=== PATIENT | female | born 1955 | race Caucasian/White ===

== ENCOUNTER 2021-08-11 13:37 | Outpatient (REF) | payer MEDICARE, SELFPAY ==
--- NOTE | ~2021-08-11 | MM_ITS ---
EXAMINATION: MM SCREENING DIGITAL BREAST TOMOSYNTHESIS, BILATERAL CLINICAL INFORMATION: Screening. Asymptomatic. The lifetime risk of breast cancer based on the Tyrer-Cuzick Model is 10%. COMPARISON: Mammography: 09/05/2014, 02/21/2013 TECHNIQUE: Digital breast tomosynthesis is performed in both the craniocaudal and mediolateral oblique views along with computer-aided detection (CAD). Synthesized 2D images are generated from the tomosynthesis. FINDINGS: There are scattered areas of fibroglandular density (ACR BI-RADS breast composition Category b). There are no significant masses, abnormal calcifications, or other abnormalities. Parenchymal pattern is similar to prior studies. There is no developing density or architectural abnormality. The axilla and skin contours are unremarkable. No significant changes. MM/MM tomosynthesis screening BI IMPRESSION: No mammographic evidence of malignancy. ASSESSMENT: BI-RADS 1: Negative RECOMMENDATION: Routine annual mammography screening. This patient's information was entered into a reminder system with a target due date for their next mammogram.
== END 2021-08-11 13:38 | disposition home or self-care (01) ==
LOC: HO.MAMMO 13:37
PROVIDERS: PCP Internal Medicine; Visit Provider Internal Medicine
DX: Z12.31 Encounter for screening mammogram for malignant neoplasm of breast (principal)
CPT/HCPCS: 77063; 77067

== ENCOUNTER 2022-06-19 06:16 | Outpatient (REF) | payer MEDICARE, SELFPAY ==
[2022-06-19 11:35] LABS: MANUAL DIFF FLAG NO
[2022-06-19 11:44] LABS: Basophils Percent Auto 0.9 % (0-2); Eosinophils Absolute Auto 0.1 X10*3/uL (0.0-0.4); Eosinophils Percent Auto 1.7 % (0-4); Hematocrit 39.4 % (37.0-47.0); Imm Gran Abs Auto 0.01 X10*3/uL (0.00-0.03); Imm Gran Pct Auto 0.2 % (0.0-0.4); Lymphocytes Absolute Auto 2.1 X10*3/uL (1.2-4.9); Lymphocytes Percent Auto 44.8 % (20-40); Mean Corpuscular Hemoglobin 31.7 pg (27.0-33.0); Mean Corpuscular Volume 96.1 fL (80.0-98.0); Mean Platelet Volume 10.7 fL (9.4-12.3); Monocytes Absolute Auto 0.3 X10*3/uL (0.1-1.2); Monocytes Percent Auto 6.5 % (2-11); Neutrophils Absolute Auto 2.1 x10*3/uL (2.0-8.3); Neutrophils Percent Auto 45.9 % (45-73); Platelet Count 243 X10*3/uL (160-400); Red Cell Distribution Width 13.4 % (11.0-16.0); White Blood Count 4.6 X10*3/uL (4.8-10.8)
[2022-06-19 12:59] LABS: Alanine Aminotransferase 22 U/L (0-31); Alkaline Phosphatase 73 U/L (39-117); Aspartate Amino Transferase 21 U/L (5-31); Bilirubin Total 0.6 mg/dL (0.0-1.0); Blood Urea Nitrogen 16 mg/dL (9-16); Cholesterol 236 mg/dL; Estimated Glomerular Filt Rate > 60; Glucose Fasting 93 mg/dL (60-99); HDL Cholesterol 65 mg/dL; LDL Cholesterol Calculated 157 mg/dl; Thyroid Stimulating Hormone 2.03 uIU/mL (0.32-4.0); Total Protein 6.4 g/dL (6.5-8.0); Triglycerides 72 mg/dL
[2022-06-19 13:37] LABS: Anion Gap 15 (12-20); Calcium 9.2 mg/dL (8.4-10.2); Carbon Dioxide 25 mmol/L (22-29); Chloride 104 mmol/L (96-108); Sodium 140 mmol/L (135-145)
== END 2022-06-19 06:17 | disposition home or self-care (01) ==
LOC: HO.HMGCLDS 06:16
PROVIDERS: PCP Internal Medicine; Visit Provider Internal Medicine
DX: Z00.00 Encounter for general adult medical examination without abnormal findings (principal)
CPT/HCPCS: 36415; 80053; 80061; 84443; 85025

== ENCOUNTER 2022-06-22 14:15 | Outpatient (REF) | payer MEDICARE, SELFPAY ==
[2022-06-24 06:58] LABS: Lyme Abs Screen <0.90 index
== END 2022-06-22 14:16 | disposition home or self-care (01) ==
LOC: HO.HMGCLDS 14:15
PROVIDERS: PCP Internal Medicine; Visit Provider Internal Medicine
DX: T14.8XXA Other injury of unspecified body region, initial encounter (principal); W57.XXXA Bitten or stung by nonvenomous insect and other nonvenomous arthropods, initial encounter
CPT/HCPCS: 36415; 86617; 86618

== ENCOUNTER 2023-06-28 08:48 | Outpatient (AMB) | payer MEDICARE, SELFPAY ==
[2023-06-28 08:49] VITALS: BP 134/82; PULSE 69; O2SAT 95; BMI 29.8
--- NOTE | 2023-06-28 08:49 | A.OFFPC_ITS ---
Vital Signs 06/28/23 08:49 Height 5 ft 3 in Weight 168 lb BMI 29.8 BP 134/82 Blood Pressure Location Lt brachial Position Sitting Pulse 69 Pulse Source Pulse Oximeter Pulse Oximetry (%) 95 Oxygen Delivery Method Room Air Intake Visit Reasons: PE Visual Merchandising Manager Required: No Antique Refinisher: Not Required per policy Accompanied by: Self / Same As Patient Allergies celecoxib [From CELEBREX] Allergy (Unknown, Verified 06/28/23 08:50) MUSCLE PAIN diclofenac [Arthrotec] Allergy (Unknown, Verified 06/28/23 08:50) Unknown loratadine [Claritin] Allergy (Unknown, Verified 06/28/23 08:50) Unknown misoprostol [From ARTHROTEC 75] Allergy (Unknown, Verified 06/28/23 08:50) STOMACH PAIN naproxen [From NAPROSYN] Allergy (Unknown, Verified 06/28/23 08:50) RASH Tobacco use date assessed: 06/28/23 Fall risk assessment: No Falls in past year Last assessed Fall Risk: 06/28/23 Dental Screening Dental Screen Date: 06/28/23 Did you have a dental visit in the last 12 months?: Yes Did you have a dental problem in the last 6 months where you did not have access to dental care?: No Was dental information given to patient?: Patient has dentist HPI PE HPI Details healhy, no meds PFSH Surgical History History of colonoscopy History of shoulder replacement History of left hip replacement History of ankle surgery Family History Father Lung cancer Mother Cancer of appendix Colon cancer Social History Housing: House Alcohol intake: current Alcohol intake frequency: a few times a week Patient Tobacco Use Status: Former Tobacco user Tobacco use type: Cigarette e-Cigarette/Vaping Use: Never Used Second Hand Smoke Exposure: No service: No Current occupational status: retired Cognitive needs: No Hearing needs: No Vision needs: Yes Questionnaire PHQ-9 Over the last 2 weeks, how often have you been bothered by any of the following problems? 1. Little interest or pleasure in doing things: not at all 2. Feeling down, depressed, or hopeless: not at all 3. Trouble falling or staying asleep, or sleeping too much: not at all 4. Feeling tired or having little energy: not at all 5. Poor appetite or overeating: not at all 6. Feeling bad about yourself - or that you are a failure or have let yourself or your family down: not at all 7. Trouble concentrating on things, such as reading the newspaper or watching television: not at all 8. Moving or speaking so slowly that other people could have noticed. Or the opposite - being so fidgety or restless that you have been moving around a lot more than usual: not at all 9. Thoughts that you would be better off or of hurting yourself in some way: not at all Total score: 0 Depression Screening Interpretation: Negative Depression Screening Done: Yes 80071 - PHQ-9 Billing: Yes Source: Developed by Drs. Dima Manzano, Luzmaria Taylor, Ildefonso Rodriguez and colleagues, with an educational steven from [employer]. Thrive Questionnaire Date Thrive assessed: 06/28/23 I am a: Patient What is your living situation today?: I have a steady place to live Within the past 12 months, did the food you bought not last and you didn't have the money to get more?: Never true Within the past 12 months, did you worry whether your food would run out before you got money to buy more?: Never true Do you have trouble paying for medicines?: No Do you have trouble getting transportation to medical appointments?: No Do you have trouble paying your heating and electricity bill?: No Do you have trouble taking care of your child, family member or friend?: No Do you have trouble with day-to-day activities such as bathing, preparing meals, shopping, managing finances, etc.?: No Are you currently unemployed and looking for a job?: No Are you interested in more education?: No Please select the resources that you would like help with: None AUDIT C Alcohol Use Questionnaire (AUDIT-C) 1. How often do you have a drink containing alcohol?: 2-4 times a month 2. How many drinks containing alcohol do you have on a typical day when you are drinking?: 1 or 2 3. How often do you have six or more drinks on one occasion?: Never Total Score: 2 Score Reviewed/Action Taken: Yes JAMILA-7 AMB Questionnaire JAMILA-7 Date JAMILA - 7 assessed: 06/28/23 Feeling nervous, anxious, or on edge: 0 = Not at all Not being able to stop or control worryin = Not at all Worrying too much about different things: 0 = Not at all Trouble relaxin = Not at all Being so restless that it is hard to sit still: 0 = Not at all Becoming easily annoyed or irritable: 0 = Not at all Feeling afraid as if something awful might happen: 0 = Not at all Total JAMILA-7 score (0-4 normal; 5-9 mild; 10-14 moderate; 15-21 severe): 0 Source: Developed by Drs. Dima Manzano, Luzmaria Taylor, Ildefonso Rodriguez and colleagues, with an educational steven from [employer]. JAMILA-7 Assessment Billing JAMILA-7 Assessment Tool: JAMILA-7 Assessment 58265 Review of Systems Const Denies chills, Denies fatigue, Denies headache(s) and Denies weight loss Eyes Denies change in vision, Denies diplopia and Denies eye pain ENT Denies vertigo, Denies dizziness, Denies headache(s) and Denies nasal discharge Card Denies chest pain, Denies rapid heart rate and Denies dyspnea on exertion Resp Denies chest congestion, Denies cough, Denies pain with cough and Denies dyspnea on exertion GI Denies abdominal pain, Denies hematochezia and Denies change in bowel habits Musc Denies myalgias, Denies arthralgias and Denies joint swelling Skin/Breast Denies lesions and Denies unusual bruising Neuro Denies vertigo, Denies dizziness, Denies headache(s) and Denies focal weakness Endo Denies fatigue Physical exam (Primary Care) Vital Signs: Last Vital Signs Pulse 69 06/28/23 08:49 BP 134/82 06/28/23 08:49 Pulse Ox 95 06/28/23 08:49 Oxygen Delivery Method Room Air 06/28/23 08:49 BMI result Body Mass Index 29.8 Tobacco/Smoking Status: Tobacco use Status Tobacco use date assessed 06/28/23 06/28/23 08:55 Patient Tobacco Use Status Former Tobacco user 06/28/23 08:55 Tobacco use type Cigarette 06/28/23 08:55 e-Cigarette/Vaping Use Never Used 06/28/23 08:55 PHQ-9: PHQ-9 Score PHQ-9: Total score 0 06/28/23 08:55 Depression Screening Interpretation: Negative Thrive Assessment: Date of Thrive Assessment Date Thrive assessed 06/28/23 06/28/23 08:55 Const General: cooperative, healthy appearing and no acute distress Orientation/consciousness: oriented to person, oriented to place and oriented to time HENMT Head: Yes normal to inspection, Yes normocephalic and Yes atraumatic Mouth: Normal oral and palatal mucosa present and tongue normal Throat: Yes posterior oropharynx normal and Yes uvula midline Eyes General: appearance normal, both eyes and all related structures Neck Neck: Yes normal visual inspection, Yes full ROM and Yes no lymphadenopathy Thyroid: Thyroid normal Carotids: normal carotid upstroke Chest Chest palpation & inspection: normal inspection of the chest Resp Effort & Inspection: normal respiratory effort and able to speak in complete sentences Auscultation: clear to auscultation bilaterally Cardio Jugular venous distension: no JVD Palpation: normal PMI Rate: regular rate Rhythm: regular rhythm Heart sounds: S1 normal heart sound present and S2 normal heart sound present GI Inspection: Yes normal to inspection Palpation (GI): Soft to palpation and No hepatosplenomegaly present Auscultation: normal bowel sounds General: Yes no CVA tenderness Back/Spine/Pelvis Back: no CVA tenderness Skin General skin exam: no rashes or lesions noted Neuro General: oriented to person, oriented to place and oriented to time Extrem General: Yes normal to inspection and Yes full ROM Assessment and Plan Assessment & Plan (1) Physical exam: Code(s): Z00.00 - Encounter for general adult medical examination without abnormal findings Plan: healthy; do labs Orders: Orders Lipid Panel Today E78.5 - Hyperlipidemia, unspecified Comprehensive Mather. Panel Fast Today N28.9 - Disorder of kidney and ureter, unspecified Thyroid Stimulating Hormone Today E03.9 - Hypothyroidism, unspecified Complete Blood Count Auto Diff Today D64.9 - Anemia, unspecified Coding Level of Care Code Est Pt Prev Care >65y(15066) Diagnoses Physical exam Z00.00 Additional Codes JAMILA-7 Assessment Billing - JAMILA-7 Assessment Tool: JAMILA-7 Assessment 18008 ([id number])
== END 2023-06-28 09:23 | disposition home or self-care (01) ==
PROVIDERS: Visit Provider Internal Medicine
DX: Z00.00 Encounter for general adult medical examination without abnormal findings (principal)
CPT/HCPCS: 99397

== ENCOUNTER 2023-12-17 07:26 | Day surgery (SDC) | payer MEDICARE, SELFPAY ==
[2023-12-15 15:12] VITALS: BMI 28.5
--- NOTE | 2023-12-16 08:48 | P.CONAN_ITS ---
Documented by User: Nancy Moss NP 12/16/23 08:48 HPI - Anesthesia Eval Consult details Narrative: 68yo F for Colonoscopy PMFSH Active Problems Active Problems: All Active Problems Physical exam (Acute) Past Medical History Medical History (Updated 12/17/23 @ 07:34 by Hillary Aguirre) Seasonal allergies Arthritis Family History Family History Father Lung cancer Mother Cancer of appendix Colon cancer Surgical History Surgical History (Updated 12/17/23 @ 07:32 by Hillary Aguirre) History of total right hip replacement History of colonoscopy History of shoulder replacement History of left hip replacement History of ankle surgery Social History Social History Housing: House Alcohol intake: current Alcohol intake frequency: a few times a month Patient Tobacco Use Status: Former Tobacco user Tobacco use type: Cigarette Years Smoked: 10 Smoked in Last 30 Days: No e-Cigarette/Vaping Use: Never Used Second Hand Smoke Exposure: No Use of substances other than those prescribed or required for medical reasons: No Are you DNR?: No Advance Directives: No Advance Directives Information Provided: Yes service: No Current occupational status: retired Cognitive needs: No Hearing needs: No Vision needs: Yes Meds Allergies Allergy/AdvReac Type Severity Reaction Status Date / Time celecoxib [From CELEBREX] Allergy Intermediate MUSCLE PAIN Verified 12/17/23 07:36 diclofenac [Arthrotec] Allergy Intermediate Gastrointestinal Verified 12/17/23 07:36 Upset loratadine [Claritin] Allergy Intermediate dysphoria Verified 12/17/23 07:36 misoprostol Allergy Intermediate STOMACH Verified 12/17/23 07:36 [From ARTHROTEC 75] PAIN naproxen [From NAPROSYN] Allergy Intermediate RASH Verified 12/17/23 07:36 Home Medications ?Medication ?Instructions ?Recorded ?Confirmed ?Last Taken ?Type Fish Oil 12/17/23 12/14/23 History amoxicillin 500 mg capsule 2,000 mg PO DIRECTED 12/17/23 12/17/23 Unknown History Exam Height,Weight and Vital Signs: Height 5 ft 4 in Weight 75.296 kg Assessment and Plan Assessment Anesthesia Assessment: Chart Reviewed Documented by User: Joseph Trevizo MD 12/17/23 07:59 [facility] Past Medical History Medical History (Updated 12/17/23 @ 07:34 by Hillary Aguirre) Seasonal allergies Arthritis Family History Family History Father Lung cancer Mother Cancer of appendix Colon cancer Family history of problems with anesthesia: No Surgical History Surgical History (Updated 12/17/23 @ 07:32 by Hillary Aguirre) History of total right hip replacement History of colonoscopy History of shoulder replacement History of left hip replacement History of ankle surgery History of Problems with Anesthesia: No Social History Social History Housing: House Alcohol intake: current Alcohol intake frequency: a few times a month Patient Tobacco Use Status: Former Tobacco user Tobacco use type: Cigarette Years Smoked: 10 Smoked in Last 30 Days: No e-Cigarette/Vaping Use: Never Used Second Hand Smoke Exposure: No Use of substances other than those prescribed or required for medical reasons: No Are you DNR?: No Advance Directives: No Advance Directives Information Provided: Yes service: No Current occupational status: retired Cognitive needs: No Hearing needs: No Vision needs: Yes Meds Allergies Allergy/AdvReac Type Severity Reaction Status Date / Time celecoxib [From CELEBREX] Allergy Intermediate MUSCLE PAIN Verified 12/17/23 07:36 diclofenac [Arthrotec] Allergy Intermediate Gastrointestinal Verified 12/17/23 07:36 Upset loratadine [Claritin] Allergy Intermediate dysphoria Verified 12/17/23 07:36 misoprostol Allergy Intermediate STOMACH Verified 12/17/23 07:36 [From ARTHROTEC 75] PAIN naproxen [From NAPROSYN] Allergy Intermediate RASH Verified 12/17/23 07:36 Home Medications ?Medication ?Instructions ?Recorded ?Confirmed ?Last Taken ?Type Fish Oil 12/17/23 12/14/23 History amoxicillin 500 mg capsule 2,000 mg PO DIRECTED 12/17/23 12/17/23 Unknown History Exam Airway Mallampati Class: II TM Dist: >3cm Neck ROM: Full Assessment and Plan Assessment Anesthesia Assessment: Anesthesia Plan Discussed Final Anesthetic Review Family History of Problems with Anesthesia: No History of Problems with Anesthesia: No NPO: Yes ASA Class: II Final Preanesthetic Review: No Changes in Pt Med Stat, Meds/Allgs Chart Reviewed, Consent Obtained/Reviewed and Anes Risks/Benef Reviewed Patient Risk: Low Procedure Risk: Low Anesthetic Plan Anesthetic Plan: TIVA Disposition: Standard PACU
[2023-12-17 07:38] VITALS: BP 135/70; PULSE 63; RESP 16; TEMP 36.8; O2SAT 99; BMI 28.9
[2023-12-17] MEDS: Lactated Ringers 1,000 ML 100 ML IVCONT (07:54)
[2023-12-17 08:46] VITALS: BP 105/66; PULSE 70; RESP 16; TEMP 36.1; O2SAT 98
--- NOTE | 2023-12-17 08:52 | P.BOP_ITS ---
Brief Operative Note Date of Service: 12/17/23 Pre-op diagnosis: Screening Post-op diagnosis: other (Polyp) Procedure: Colonoscopy to the cecum with bx/removal of polyp Surgeon: Dima Gomez MD Anesthesia: MAC Was an Mechanical Engineering Teacher used for this Procedure?: No Estimated blood loss (mL): 2.0 Pathology: other (A. Transverse colon polyp) Condition: stable Disposition: PACU
[2023-12-17 09:01] VITALS: BP 113/66; PULSE 64; RESP 16; O2SAT 98
[2023-12-17 09:16] VITALS: BP 123/72; PULSE 64; RESP 16; TEMP 36.1; O2SAT 96
--- NOTE | 2023-12-17 09:59 | OP_ITS ---
DATE OF SERVICE: 12/17/2023 SURGEON: Dima Gomez MD INDICATIONS: The patient presents for evaluation of colorectal cancer screening. Full consent has been obtained from her for this, including risks of bleeding and perforation. PREOPERATIVE DIAGNOSIS: Colorectal cancer screening. POSTOPERATIVE DIAGNOSIS: PROCEDURE PERFORMED: Colonoscopy to cecum with biopsy and removal of polyp. ESTIMATED BLOOD LOSS: COMPLICATIONS: ANESTHESIA: Monitored anesthesia care. ASSISTANTS: SPECIMENS: POSTOPERATIVE DIAGNOSES: Colorectal cancer screening, small colon polyp, diverticulosis, and internal hemorrhoids. DESCRIPTION OF PROCEDURE: The patient was placed in the left lateral decubitus position. The digital rectal exam revealed no abnormalities. The Olympus video pediatric colonoscope was then entered into the rectum and advanced to the cecum with the assistance of abdominal wall pressure. Once in the cecum, I did identify normal-appearing cecal pouch with appendiceal orifice and a normal-appearing ileocecal valve. The entire cecum was well visualized and appeared normal. The scope was slowly withdrawn assessing all mucosal surfaces carefully. Preparation was excellent. In the transverse colon, was a flat, approximately 3 or 4 mm polyp, which was biopsied and completely removed with the cold biopsy forceps. I did not visualize any other polyps, colitis, or angiodysplasia. There was a mild amount of diverticulosis in the ascending colon. There was a moderate amount of diverticulosis in the sigmoid and descending colon. In the rectum, scope was retroflexed, visualizing small internal hemorrhoids, but no other pathology. The rectal mucosa appeared normal. The scope was straightened and withdrawn from the patient. She tolerated the procedure well and was returned to the recovery area in stable condition. IMPRESSION: 1. Small colon polyp. 2. Diverticulosis. 3. Internal hemorrhoids. PLAN: The results of the pathology will be checked. If this is a tubular adenoma, I would recommend a followup colonoscopy in 5 years. If it is only hyperplastic I would still recommend a colonoscopy in 5 years due to her family history of colon cancer. This has been discussed with her via voicemail. MD FELIPE Stout/CHARLES / [id number] MTDD
--- NOTE | 2023-12-17 17:05 | PC.NURSE ---
24 hour preop assessment documented by Dr Gomez using paper form
== END 2023-12-17 09:42 | disposition home or self-care (01) ==
PROVIDERS: PCP Internal Medicine; Visit Provider Internal Medicine
PROC: 0DJD8ZZ Inspection of Lower Intestinal Tract, Via Natural or Artificial Opening Endoscopic (ICD-10-PCS; CPT 45378; principal; 2023-12-17 08:40)
DX: Z12.11 Encounter for screening for malignant neoplasm of colon (principal); D12.3 Benign neoplasm of transverse colon; K57.30 Diverticulosis of large intestine without perforation or abscess without bleeding; K64.8 Other hemorrhoids; Z80.0 Family history of malignant neoplasm of digestive organs
CPT/HCPCS: 45380; 88305; J2704

== ENCOUNTER 2024-06-26 06:06 | Outpatient (REF) | payer MEDICARE, SELFPAY ==
[2024-06-26 10:32] LABS: MANUAL DIFF FLAG NO
[2024-06-26 10:36] LABS: Basophils Percent Auto 0.6 % (0-2); Eosinophils Absolute Auto 0.1 X10*3/uL (0.0-0.4); Eosinophils Percent Auto 2.1 % (0-4); Hematocrit 39.7 % (37.0-47.0); Hemoglobin 12.8 g/dl (12.0-16.0); Imm Gran Abs Auto 0.01 X10*3/uL (0.00-0.03); Imm Gran Pct Auto 0.2 % (0.0-0.4); Lymphocytes Absolute Auto 2.6 X10*3/uL (1.2-4.9); Lymphocytes Percent Auto 42.6 % (20-40); Mean Corpuscular HGB Conc 32.2 g/dl (31.0-35.0); Mean Corpuscular Hemoglobin 31.1 pg (27.0-33.0); Mean Corpuscular Volume 96.6 fL (80.0-98.0); Mean Platelet Volume 10.4 fL (9.4-12.3); Monocytes Absolute Auto 0.4 X10*3/uL (0.1-1.2); Monocytes Percent Auto 6.8 % (2-11); Neutrophils Percent Auto 47.7 % (45-73); Platelet Count 254 X10*3/uL (160-400); Red Blood Count 4.11 X10*6/uL (4.20-5.50); Red Cell Distribution Width 13.2 % (11.0-16.0); White Blood Count 6.2 X10*3/uL (4.8-10.8)
[2024-06-26 11:23] LABS: Thyroid Stimulating Hormone 3.28 uIU/mL (0.32-4.0)
[2024-06-26 11:27] LABS: Anion Gap 10 (12-20)
[2024-06-26 11:32] LABS: Alanine Aminotransferase 25 U/L (0-31); Albumin Level 3.9 g/dL (3.5-5.0); Alkaline Phosphatase 70 U/L (39-117); Aspartate Amino Transferase 26 U/L (5-31); Bilirubin Total 0.5 mg/dL (0.0-1.0); Blood Urea Nitrogen 20 mg/dL (9-16); Calcium 9.1 mg/dL (8.4-10.2); Carbon Dioxide 29 mmol/L (22-29); Chloride 106 mmol/L (96-108); Cholesterol 221 mg/dL (<200); Estimated Glomerular Filt Rate > 60; Glucose Fasting 90 mg/dL (60-99); HDL Cholesterol 64 mg/dL (>40); LDL Cholesterol Calculated 141 mg/dL (<100); Potassium 3.6 mmol/L (3.3-5.1); Sodium 141 mmol/L (135-145); Total Protein 6.4 g/dL (6.5-8.0); Triglycerides 81 mg/dL (<150)
--- OUTSIDE RECORDS SUMMARY | 2024-06-28 12:28 | XMS_ITS ---
Author Organization [facility] Address [address] [place] [address] Care Team Providers Care Nuclear Logging Engineer Name Role Phone Stanley Glaser MD Primary Care Provider Dima Mclean [phone] REASON FOR VISIT Patient presents today for a colon screening Encounters Encounter Location Date Provider Diagnosis [facility] [address] [place] [address] 03/09/2023 Dima Gomez PLAN OF TREATMENT No Information
--- OUTSIDE RECORDS SUMMARY | 2024-06-28 12:28 | XMS_ITS ---
Author Organization [facility] Address [address] [place] [id number] Care Team Providers Care Cognos Developer Name Role Phone Stanley Galser MD Primary Care Provider Dima Mclean [phone] ALLERGIES Allergen (clinical drug ingredient) Drug/Non Drug Allergy documented on EMR Reaction Allergy Type Onset Date Status diclofenac / misoprostol Arthrotec Unknown Drug Allergy Active naproxen Naproxen Unknown Drug Allergy Active loratadine Claritin Unknown Drug Allergy Active celecoxib CeleBREX Unknown Drug Allergy Active REASON FOR VISIT Patient presents today for a colon screening MEDICATIONS Medication SIG (Take, Route, Fr equency, Duration) Notes Start Date End Date Status Folic Acid Active Vitamin B 12 Active Fish Oil Active Magnesium Active Vitamin C Active Amoxicillin 500 MG TAKE 4 CAPSULES 1 HO UR BEFORE DENTIST APPOINTMENT DIRECTED Oral for 20 Active Multivitamin - 1 tablet Orally Once a day for 30 day(s) Active Vitamin D3 Active PROBLEMS Problem Type ICD Code Onset Dates Problem Status W/U Status Risk SNOMED Code Notes Problem Colon cancer screening (Z12.11) Active confirmed Colon cancer screening (809939865) Problem Encounter for other preprocedural examination (Z01.818) Active confirmed Pre-procedure evaluation check (720023268) VITAL SIGNS BMI 28.49 kg/m2 09/16/2023 Blood pressure systolic 00 mm Hg 09/16/19 24 Blood pressure diastolic 00 mm Hg 024 Height 5 ft 4 in in 09/16/2023 Temperature 97.3 degrees Fahrenheit 09/16/19 24 Weight 166 lbs 09/16/2023 Encounters Encounter Location Date Provider Diagnosis [facility] [address] [place] [address] 09/16/2023 Dima Gomez Colon cancer screeni ng Z12.11 and Encounter for other preprocedural examination Z01.818 ASSESSMENTS Encounter Date Diagnosis Assessment Notes Treatment Notes Treatment Clinical Notes 09/16/2023 Colon cancer screening (ICD-10 - Z12.11) 09/16/2023 Encounter for other preprocedural examination (ICD-10 - Z01.818) PLAN OF TREATMENT Future Test Test Name Order Date COLONOSCOPY 09/16/2023 Next Appt Details Follow Up: prn, Reason: Progress Notes * Examination Category Sub-Category Detail Notes General Examination GENERAL APPEARANCE: pleasant , well nourished, well developed, in no acute distress HEAD: EYES: sclera non-icteric EARS: NOSE: THROAT: NECK/THYROID: no cervical lymphade nopathy, neck supple HEART: S1, S2 normal CHEST: LUNGS: clear to auscultatio n bilaterally ABDOMEN: normal bowel sounds, no guarding or rigidity, no guarding or rigidity, no masses palpable, soft, nontender, nondistended NEUROLOGIC: alert and oriented SKIN: nonjaundiced, no spi maribel angiomata EXTREMITIES: no edema PERIPHERAL PULSES: BACK: BREASTS: MUSCULOSKELETAL: MALE GENITOURINARY: LYMPH NODES: RECTAL EXAM: FEMALE GENITOURINARY: ORAL CAVITY: mucosa moist
--- OUTSIDE RECORDS SUMMARY | 2024-06-28 12:28 | XMS_ITS ---
Author Organization [facility] Address [address] [place] [address] Care Team Providers Care Admissions Director Name Role Phone Stanley Glaser MD Primary Care Provider Linaa Dima Harrison Unavailable [phone] REASON FOR VISIT screening PROBLEMS Problem Type ICD Code Onset Dates Problem Status W/U Status Risk SNOMED Code Notes Problem Diverticulosis of large intestine without perforation or abscess without bleeding (K57.30) Active confirmed Diverticul ar disease of colon ([id number]) Encounters Encounter Location Date Provider Diagnosis [facility] [address] [place], [place] [id number] 12/17/2023 Dima Gomez Encounter for scre ening colonoscopy Z12.11 ; Colon polyps K63.5 ; Diverticulosis of large intestine without perforation or abscess without bleeding K57.30 and Other hemorrhoids K64.8 ASSESSMENTS Encounter Date Diagnosis Assessment Notes Treatment Notes Treatment Clinical Notes 12/17/2023 Encounter for screening colonoscopy (ICD-10 - Z12.11) 12/17/2023 Colon polyps (ICD-10 - K63.5) 12/17/2023 Diverticulosis of large intestine without perforation or abscess without bleeding (ICD-10 - K57.30) 12/17/2023 Other hemorrhoids (ICD-10 - K64.8) PLAN OF TREATMENT No Information
--- OUTSIDE RECORDS SUMMARY | 2024-06-28 12:28 | XMS_ITS | Patient Health Record ---
Author Organization [facility] Address [address] [place] [address] Care Team Providers Care Boilermaker Name Role Phone Stanley Glaser MD Primary Care Provider Dima Mclean Unavailable [phone] ALLERGIES Allergen (clinical drug ingredient) Drug/Non Drug Allergy documented on EMR Reaction Allergy Type Onset Date Status diclofenac / misoprostol Arthrotec Unknown Drug Allergy Active naproxen Naproxen Unknown Drug Allergy Active loratadine Claritin Unknown Drug Allergy Active celecoxib CeleBREX Unknown Drug Allergy Active RESULTS Component Value Reference Range Notes Pathology (Not yet reviewed by provider) Interpretation: Performing Lab:[facility], [address] [place] [id number] Notes/Report: REASON FOR REFERRAL No Information MEDICATIONS Medication SIG (Take, Route, Fr equency, Duration) Notes Start Date End Date Status Folic Acid Active Vitamin B 12 Active Fish Oil Active Magnesium Active Vitamin C Active Amoxicillin 500 MG TAKE 4 CAPSULES 1 HO UR BEFORE DENTIST APPOINTMENT DIRECTED Oral for 20 Active Multivitamin - 1 tablet Orally Once a day for 30 day(s) Active Vitamin D3 Active SOCIAL HISTORY Sex Assigned At : Social History Observation Description Sex Assigned At Unknown PROBLEMS Problem Type ICD Code Onset Dates Problem Status W/U Status Risk SNOMED Code Notes Problem Colon cancer screening (Z12.11) Active confirmed Colon can cer screening (974344308) Problem Encounter for other preprocedural examination (Z01.818) Active confirmed Pre-procedure evaluation check (344099758) Problem Diverticulosis of large intestine without perforation or abscess without bleeding (K57.30) Active confirmed Diverticul ar disease of colon (436395452) VITAL SIGNS Temperature 97.3 degrees Fahrenheit 09/16/2023 Blood pressure diastolic 00 mm Hg 09/16/2023 Height 5 ft 4 in in 09/16/2023 Blood pressure systolic 00 mm Hg 09/16/2023 Weight 166 lbs 09/16/2023 BMI 28.49 kg/m2 09/16/2023 Encounters Encounter Location Date Provider Diagnosis [facility] [place] [address], [place] [phone] 12/17/2023 Dima Gomez Encounter for screen ing colonoscopy Z12.11 ; Colon polyps K63.5 ; Diverticulosis of large intestine without perforation or abscess without bleeding K57.30 and Other hemorrhoids K64.8 [facility] [address] [place] [address] 09/16/2023 Dima Gomez Colon cancer screeni ng Z12.11 and Encounter for other preprocedural examination Z01.818 ASSESSMENTS Encounter Date Diagnosis Assessment Notes Treatment Notes Treatment Clinical Notes 12/17/2023 Encounter for screening colonoscopy (ICD-10 - Z12.11) 12/17/2023 Colon polyps (ICD-10 - K63.5) 09/16/2023 Colon cancer screening (ICD-10 - Z12.11) 09/16/2023 Encounter for other preprocedural examination (ICD-10 - Z01.818) 12/17/2023 Diverticulosis of large intestine without perforation or abscess without bleeding (ICD-10 - K57.30) 12/17/2023 Other hemorrhoids (ICD-10 - K64.8) PLAN OF TREATMENT Pending Test Test Name Order Date Pathology 12/17/2023 Future Test Test Name Order Date COLONOSCOPY 09/16/2023 Insurance Providers Payer Name Payer Address Payer Phone Subscriber Number Group Number Insured Name Patient Relationship to Insured Coverage Start Date Coverage End Date [employer] [address] [place] [address] [id number] ANDREA FOSTER Self - patient is the insured MEDICAL (GENERAL) HISTORY Medical History History ICD Code Denies [place],DM,CVA,Lung disease,renal dise ase She reports a negative screening colonos copy at age 59 [address] Palma Surgical History Surgery Date(Month/Year) Right and left hip replacements 2004,201 5 Left ankle fx w/ hardware Left shoulder replacement 2017
== END 2024-06-26 06:07 | disposition home or self-care (01) ==
LOC: HO.HMGCLDS 06:06
PROVIDERS: PCP Internal Medicine; Visit Provider Internal Medicine
DX: E78.5 Hyperlipidemia, unspecified (principal); D64.9 Anemia, unspecified; N28.9 Disorder of kidney and ureter, unspecified; E03.9 Hypothyroidism, unspecified
CPT/HCPCS: 36415; 80053; 80061; 84443; 85025

== ENCOUNTER 2024-06-30 08:46 | Outpatient (AMB) | payer MEDICARE, SELFPAY ==
[2024-06-30 08:47] VITALS: BP 118/70; PULSE 71; O2SAT 97; BMI 29.2
--- NOTE | 2024-06-30 08:47 | MHC.PC.OV ---
Vital Signs 06/30/24 08:47 Height 5 ft 3 in Weight 165 lb BMI 29.2 BP 118/70 Blood Pressure Location Lt brachial Position Sitting Pulse 71 Pulse Source Pulse Oximeter Pulse Oximetry (%) 97 Oxygen Delivery Method Room Air Intake Visit Reasons: ANNUAL Associate Director Required: No Accompanied by: Self / Same As Patient Allergies celecoxib [From CELEBREX] Allergy (Intermediate, Verified 06/30/24 08:48) MUSCLE PAIN diclofenac [Arthrotec] Allergy (Intermediate, Verified 06/30/24 08:48) Gastrointestinal Upset loratadine [Claritin] Allergy (Intermediate, Verified 06/30/24 08:48) dysphoria misoprostol [From ARTHROTEC 75] Allergy (Intermediate, Verified 06/30/24 08:48) STOMACH PAIN naproxen [From NAPROSYN] Allergy (Intermediate, Verified 06/30/24 08:48) RASH Medication List - Last Reconciled 06/30/24 by Stanley Glaser MD amoxicillin 2,000 mg PO DIRECTED [Fish Oil ] Tobacco use date assessed: 06/30/24 Fall risk assessment: No Falls in past year Last assessed Fall Risk: 06/30/24 Dental Screening Dental Screen Date: 06/30/24 Did you have a dental visit in the last 12 months?: Yes Did you have a dental problem in the last 6 months where you did not have access to dental care?: No Was dental information given to patient?: Patient has dentist HPI ANNUAL HPI Details healthy [facility] Medical History (Updated 12/17/23 @ 07:34 by Hillary Aguirre RN) Seasonal allergies Arthritis Surgical History (Updated 12/17/23 @ 07:32 by Hillary Aguirre RN) History of total right hip replacement History of colonoscopy History of shoulder replacement History of left hip replacement History of ankle surgery Family History (Updated 06/30/24 @ 08:49 by Alysha Mcnally CMA) Father Lung cancer Mother Cancer of appendix Colon cancer Social History Housing: House Alcohol intake: current Alcohol intake frequency: a few times a month Patient Tobacco Use Status: Former Tobacco user Tobacco use type: Cigarette Years Smoked: 10 e-Cigarette/Vaping Use: Never Used Second Hand Smoke Exposure: No service: No Current occupational status: retired Cognitive needs: No Hearing needs: No Vision needs: Yes Questionnaire PHQ-9 Over the last 2 weeks, how often have you been bothered by any of the following problems? 1. Little interest or pleasure in doing things: not at all 2. Feeling down, depressed, or hopeless: not at all 3. Trouble falling or staying asleep, or sleeping too much: not at all 4. Feeling tired or having little energy: not at all 5. Poor appetite or overeating: not at all 6. Feeling bad about yourself - or that you are a failure or have let yourself or your family down: not at all 7. Trouble concentrating on things, such as reading the newspaper or watching television: not at all 8. Moving or speaking so slowly that other people could have noticed. Or the opposite - being so fidgety or restless that you have been moving around a lot more than usual: not at all 9. Thoughts that you would be better off or of hurting yourself in some way: not at all Total score: 0 Depression Screening Interpretation: Negative Depression Screening Done: Yes 19548 - PHQ-9 Billing: Yes Source: Developed by Drs. Dima Manzano, Luzmaria Taylor, Ildefonso Rodriguez and colleagues, with an educational steven from [employer]. Thrive Questionnaire Date Thrive assessed: 06/30/24 I am a: Patient What is your living situation today?: I have a steady place to live Within the past 12 months, did the food you bought not last and you didn't have the money to get more?: Never true Within the past 12 months, did you worry whether your food would run out before you got money to buy more?: Never true Do you have trouble paying for medicines?: No Do you have trouble getting transportation to medical appointments?: No Do you have trouble paying your heating and electricity bill?: No Do you have trouble taking care of your child, family member or friend?: No Do you have trouble with day-to-day activities such as bathing, preparing meals, shopping, managing finances, etc.?: No Are you currently unemployed and looking for a job?: No Are you interested in more education?: No Please select the resources that you would like help with: None Currently or been in a relationship where the following occur: No concerns reported THRIVE Score: 0 AUDIT C Alcohol Use Questionnaire (AUDIT-C) 1. How often do you have a drink containing alcohol?: 2-4 times a month 2. How many drinks containing alcohol do you have on a typical day when you are drinking?: 1 or 2 3. How often do you have six or more drinks on one occasion?: Never Total Score: 2 Score Reviewed/Action Taken: Yes JAMILA-7 AMB Questionnaire JAMILA-7 Date JAMILA - 7 assessed: 06/30/24 Feeling nervous, anxious, or on edge: 0 = Not at all Not being able to stop or control worryin = Not at all Worrying too much about different things: 0 = Not at all Trouble relaxin = Not at all Being so restless that it is hard to sit still: 0 = Not at all Becoming easily annoyed or irritable: 0 = Not at all Feeling afraid as if something awful might happen: 0 = Not at all Total JAMILA-7 score (0-4 normal; 5-9 mild; 10-14 moderate; 15-21 severe): 0 Source: Developed by Drs. Dima Manzano, Luzmaria Taylor, Ildefonso Rodriguez and colleagues, with an educational steven from [employer]. JAMILA-7 Assessment Billing JAMILA-7 Assessment Tool: JAMILA-7 Assessment 04235 Review of Systems Const Denies chills, Denies fatigue, Denies headache(s) and Denies weight loss Eyes Denies change in vision, Denies diplopia and Denies eye pain ENT Denies vertigo, Denies dizziness, Denies headache(s) and Denies nasal discharge Card Denies chest pain, Denies rapid heart rate and Denies dyspnea on exertion Resp Denies chest congestion, Denies cough, Denies pain with cough and Denies dyspnea on exertion GI Denies abdominal pain, Denies hematochezia and Denies change in bowel habits Musc Denies myalgias, Denies arthralgias and Denies joint swelling Skin/Breast Denies lesions and Denies unusual bruising Neuro Denies vertigo, Denies dizziness, Denies headache(s) and Denies focal weakness Endo Denies fatigue Physical exam (Primary Care) Vital Signs: Last Vital Signs Pulse 71 06/30/24 08:47 BP 118/70 06/30/24 08:47 Pulse Ox 97 06/30/24 08:47 Oxygen Delivery Method Room Air 06/30/24 08:47 BMI result Body Mass Index 29.2 Tobacco/Smoking Status: Tobacco use Status Tobacco use date assessed 06/30/24 06/30/24 08:49 Patient Tobacco Use Status Former Tobacco user 06/30/24 08:49 Tobacco use type Cigarette 06/30/24 08:49 e-Cigarette/Vaping Use Never Used 06/30/24 08:49 PHQ-9: PHQ-9 Score PHQ-9: Total score 0 06/30/24 09:01 Depression Screening Interpretation: Negative Thrive Assessment: Date of Thrive Assessment Date Thrive assessed 06/30/24 06/30/24 08:49 Currently or been in a relationship where the following occur: No concerns reported Const General: cooperative, healthy appearing and no acute distress Orientation/consciousness: oriented to person, oriented to place and oriented to time HENMT Head: Yes normal to inspection, Yes normocephalic and Yes atraumatic Mouth: Normal oral and palatal mucosa present and tongue normal Throat: Yes posterior oropharynx normal and Yes uvula midline Eyes General: appearance normal, both eyes and all related structures Neck Neck: Yes normal visual inspection, Yes full ROM and Yes no lymphadenopathy Thyroid: Thyroid normal Carotids: normal carotid upstroke Chest Chest palpation & inspection: normal inspection of the chest Resp Effort & Inspection: normal respiratory effort and able to speak in complete sentences Auscultation: clear to auscultation bilaterally Cardio Jugular venous distension: no JVD Palpation: normal PMI Rate: regular rate Rhythm: regular rhythm Heart sounds: S1 normal heart sound present and S2 normal heart sound present GI Inspection: Yes normal to inspection Palpation (GI): Soft to palpation and No hepatosplenomegaly present Auscultation: normal bowel sounds General: Yes no CVA tenderness Back/Spine/Pelvis Back: no CVA tenderness Skin General skin exam: no rashes or lesions noted Neuro General: oriented to person, oriented to place and oriented to time Extrem General: Yes normal to inspection and Yes full ROM Coding Level of Care Code Est Pt Prev Care >65y(78532) Diagnoses Physical exam Z00.00 Additional Codes JAMILA-7 Assessment Billing - JAMILA-7 Assessment Tool: JAMILA-7 Assessment 34601 ([id number]) PHQ-9 - 97683 - PHQ-9 Billing: Yes ([id number]) Assessment & Plan Assessment & Plan (1) Physical exam: Code(s): Z00.00 - Encounter for general adult medical examination without abnormal findings Category: Medical Plan: healthy
--- OUTSIDE RECORDS SUMMARY | 2024-06-30 08:51 | XMS_ITS ---
Author Organization [facility] Address [address] [place] [address] Care Team Providers Care Manager Of Customer Billing Name Role Phone Stanley Glaser MD Primary Care Provider Dima Mclean [phone] ALLERGIES Allergen (clinical drug ingredient) Drug/Non Drug [...] screening (Z12.11) Active confirmed Colon cancer screening (728486678) Problem Encounter for other preprocedural examination (Z01.818) Active confirmed Pre-procedure evaluation check (184561744) VITAL SIGNS BMI 28.49 kg/m2 09/16/2023 Blood pressure systolic 00 mm Hg 09/16/19 24 Blood pressure diastolic 00 mm Hg 024 Height 5 ft 4 in in 09/16/2023 Temperature 97.3 degrees Fahrenheit 09/16/19 24 Weight 166 lbs 09/16/2023 Encounters Encounter Location Date Provider Diagnosis [facility] [address] [place] [address] 09/16/2023 Dima Gomez Colon cancer screeni ng [...]
--- OUTSIDE RECORDS SUMMARY | 2024-06-30 08:51 | XMS_ITS ---
Author Organization [facility] Address [address] [place] [address] Care Team Providers Care Vp Scientific Affairs Name Role Phone Stanley Glaser MD Primary Care Provider Dima Mclean [phone] REASON FOR VISIT Patient presents today for a colon screening Encounters Encounter Location Date Provider Diagnosis [facility] [address] [place] [address] 03/09/2023 Dima Gomez PLAN OF TREATMENT No Information
--- OUTSIDE RECORDS SUMMARY | 2024-06-30 08:51 | XMS_ITS ---
Author Organization [facility] Address [address] [place] [address] Care Team Providers Care Animal Science Professor Name Role Phone Stanley Glaser MD Primary Care Provider Linaa Dima Harrison Unavailable [phone] REASON FOR VISIT screening PROBLEMS Problem Type ICD Code Onset Dates Problem Status W/U Status Risk SNOMED Code Notes Problem Diverticulosis of large intestine without perforation or abscess without bleeding (K57.30) Active confirmed Diverticul ar disease of colon (487743698) Encounters Encounter Location Date Provider Diagnosis [facility] [place] [address] [place], [place] [phone] 12/17/2023 Dima Gomez Encounter for scre ening [...]
--- OUTSIDE RECORDS SUMMARY | 2024-06-30 08:51 | XMS_ITS | Patient Health Record ---
Author Organization [facility] Address [address] [place] [address] Care Team Providers Care Product Manufacturing Professional Name Role Phone Stanley Glaser MD Primary Care Provider Dima Mclean Unavailable [phone] ALLERGIES Allergen (clinical drug ingredient) Drug/Non Drug Allergy documented on EMR Reaction Allergy Type Onset Date Status diclofenac / misoprostol Arthrotec Unknown Drug Allergy Active naproxen Naproxen Unknown Drug Allergy Active loratadine Claritin Unknown Drug Allergy Active celecoxib CeleBREX Unknown Drug Allergy Active RESULTS Component Value Reference Range Notes Pathology (Not yet reviewed by provider) Interpretation: Performing Lab:[facility], [address] [place] [phone] Notes/Report: REASON FOR REFERRAL No Information MEDICATIONS [...] (Z12.11) Active confirmed Colon can cer screening (673165875) Problem Encounter for other preprocedural examination (Z01.818) Active confirmed Pre-procedure evaluation check (752137042) Problem Diverticulosis of large intestine without perforation or abscess without bleeding (K57.30) Active confirmed Diverticul ar disease of colon (694380589) VITAL SIGNS Temperature 97.3 degrees Fahrenheit 09/16/2023 Blood pressure diastolic 00 mm Hg 09/16/2023 Height 5 ft 4 in in 09/16/2023 Blood pressure systolic 00 mm Hg 09/16/2023 Weight 166 lbs 09/16/2023 BMI 28.49 kg/m2 09/16/2023 Encounters Encounter Location Date Provider Diagnosis [facility] [address] [place], [place] [phone] 12/17/2023 Dima Gomez Encounter for screen ing colonoscopy Z12.11 ; Colon polyps K63.5 ; Diverticulosis of large intestine without perforation or abscess without bleeding K57.30 and Other hemorrhoids K64.8 [facility] [address] [place] [address] 09/16/2023 Dima Gomez Colon cancer screeni ng [...] Insured Coverage Start Date Coverage End Date [facility] [address] [place] [address] [id number] ANDREA FOSTER Self - patient is the insured MEDICAL (GENERAL) HISTORY Medical History History ICD Code Denies [place],DM,CVA,Lung disease,renal dise ase She reports a negative screening colonos copy at age 59 [address] Palma Surgical History Surgery Date(Month/Year) Right and left hip replacements 2004,201 5 Left ankle fx w/ hardware Left shoulder replacement 2017
== END 2024-06-30 09:18 | disposition home or self-care (01) ==
PROVIDERS: PCP Internal Medicine; Visit Provider Internal Medicine
DX: Z00.00 Encounter for general adult medical examination without abnormal findings (principal)

== ENCOUNTER → 2024-06-30 08:46 | Outpatient (BNVA) | payer MEDICARE, SELFPAY | PROVIDERS: PCP Internal Medicine; Visit Provider Internal Medicine | DX: Z00.00 Encounter for general adult medical examination without abnormal findings (principal) | CPT/HCPCS: 96127; 99397 ==